=== PATIENT | male | born 1965 | race Caucasian/White ===

== ENCOUNTER 2016-12-13 11:59 | Emergency (ER) | payer OTHER ==
[2016-12-13] MEDS ORDERED: LIDOCAINE 1% INJ-PF (10 MG/ML) 30 ML SDV INJ ONE (12:15)
[2016-12-13] MEDS ORDERED: OXYCODONE-ACETAMINOPHEN 5-325 MG TABLET PO ONE (12:15)
[2016-12-13] MEDS ORDERED: DOXYCYCLINE HYCLATE 100 MG TABLET PO ONE (12:17)
[2016-12-13] MEDS ORDERED: CEPHALEXIN 500 MG CAPSULE PO ONE (12:17)
--- NOTE | 2016-12-13 12:25 | ER Document Report ---
ED Foreign Body - General Chief Complaint: Foreign Body Stated Complaint: FISH HOOK IN LEFT HAND Time Seen by Provider: 12/13/16 12:09 - HPI Location of foreign body: Hand - left thenar prominence Onset: Just prior to arrival Onset/Duration: Sudden Quality of pain: Stabbing Associated symptoms: Recent injury - fish hook, fishing in salt water Exacerbated by: Movement Relieved by: Remaining still Similar symptoms previously: No Recently seen / treated by doctor: No - Related Data Allergies/Adverse Reactions: No Known Allergies Allergy (Verified 12/13/16 12:06) Past Medical History - Social History Smoking Status: Unknown if Ever Smoked Family History: Reviewed & Not Pertinent Renal/ Medical History: Denies: Hx Peritoneal Dialysis Review of Systems - Review of Systems Constitutional: No symptoms reported Musculoskeletal: No symptoms reported Skin: See HPI -: Yes All other systems reviewed and negative Physical Exam - Vital signs Vitals: Temp Pulse Resp BP Pulse Ox 97.9 F 68 18 129/78 H 97 12/13/16 12:02 12/13/16 12:02 12/13/16 12:02 12/13/16 12:02 12/13/16 12:02 - General General appearance: Appears well, Alert In distress: None - Cardiovascular Pulses: Normal: Radial Normal capillary refill: Yes - Extremities Hand: Tender. No: Nail injury, No evidence of FB, Tendon deficit - Skin Skin Temperature: Warm Skin Moisture: Dry Skin Color: Normal Skin Turgor: Elastic Notes: FB in left thenar prominence without bleeding Course - Re-evaluation Re-evalutation: 12/13/16 13:14 Patient is a 51-year-old male who is hemodynamic stable, no distress afebrile. Tetanus status updated today. [place] removed at bedside. Patient tolerated the procedure well. No complications. Bleeding controlled. Wound dressed with Steri-Strips after irrigation with Betadine at the bedside. Patient stable for discharge home. He will be taking doxycycline and Keflex for antibiotic coverage and to follow-up with primary care. - Vital Signs Vital signs: Temp Pulse Resp BP Pulse Ox 97.9 F 68 18 129/78 H 97 12/13/16 12:02 12/13/16 12:02 12/13/16 12:02 12/13/16 12:02 12/13/16 12:02 Discharge - Discharge Clinical Impression: Fish hook injury of hand Qualifiers: Encounter type: initial encounter Laterality: left Qualified Code(s): S69.92XA - Unspecified injury of left wrist, hand and finger(s), initial encounter Condition: Good Disposition: HOME, SELF-CARE Instructions: Removal of Subcutaneous Foreign Object ([facility]) Additional Instructions: Please follow up with your Primary care in 10-14 days Prescriptions: Cephalexin Monohydrate [Keflex 500 mg Capsule] 500 mg PO QID #20 capsule Doxycycline Hyclate 100 mg PO BID #20 capsule
[2016-12-13] MEDS ORDERED: DIPH/PERTUSS(ACELL)/TETANUS VAC/PF 0.5 ML SYR (>=10YO) IM ONE (13:14)
[2016-12-13 13:27] VITALS: BP 132/76
== END 2016-12-13 13:25 | disposition home or self-care (01) ==
LOC: ER 11:59
DX: S69.92XA Unspecified injury of left wrist, hand and finger(s), initial encounter (principal); S60.552A Superficial foreign body of left hand, initial encounter; W45.8XXA Other foreign body or object entering through skin, initial encounter
CPT/HCPCS: 99283; 90471; 90715; J3490